=== PATIENT | female | born 1975 | race Native Hawaiian/Other Pacific Islander ===

== ENCOUNTER 2018-11-14 09:49 | Outpatient (CLI) | payer OTHER | END 2018-11-14 09:50 | disposition home or self-care (01) | LOC: C.RADIC 09:49 ==

== ENCOUNTER 2018-11-25 07:52 | Day surgery (SDC) | payer OTHER | END 2018-11-25 11:17 | disposition home or self-care (01) | LOC: C.ENDO 07:52 | DX: K92.2 Gastrointestinal hemorrhage, unspecified (principal); K59.00 Constipation, unspecified; B96.81 Helicobacter pylori [H. pylori] as the cause of diseases classified elsewhere ==